=== PATIENT | female | born 1935 | race Caucasian/White ===

== ENCOUNTER 2019-02-09 19:11 | Emergency (ER) | payer MEDICARE ==
[2019-02-09 19:37] LABS: Urine Appearance Clear; Urine Bacteria 1+ (Absent); Urine Bilirubin Negative (Negative); Urine Blood 1+ (Negative); Urine Color Straw; Urine Glucose Negative (Negative); Urine Ketones Negative (Negative); Urine Nitrite Negative (Negative); Urine Protein Negative (Negative); Urine Red Blood Cell Trace(0-2/hpf) (Absent); Urine Specific Gravity 1.006 (1.010-1.030); Urine Urobilinogen Negative (Negative); Urine White Blood Cell Trace(0-5/hpf) (Absent)
--- OUTSIDE RECORDS SUMMARY | 2019-02-09 19:48 | XMS REPORT | Continuity of Care Document ---
:1935 External Reference #:[id number] Author Name Rico Christianson M.D. Address [address] [place] [address] Care Team Providers Name Role Phone Deya Gonzalez M.D. Primary Care Physician Unavailable Payers Date Identification Numbers Payment Provider Subscriber Policy Number: [id number] Medicare - NGS Nichelle Dill PayID: [id number] [address] [place] [address] Problems Active Problems Provider Date Nonexudative age-related macular Brandan Trotter M.D. Onset: 04/06/2015 degeneration Nuclear senile cataract Brandan Trotter M.D. 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 Onset: 07/03/2016 degeneration of right eye Combined form of senile cataract Brandan Trotter M.D. 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 Onset: 08/2016 of right eye Benign neoplasm of eyelid including canthus Rico Christianson M.D. Onset: 08/2016 Retinal edema Rico Christianson M.D. Onset: 08/29/2017 Family History Date Family Member(s) Observation Comments Father No Current Problems Mother No Current Problems First Brother Macular Degeneration Social History Type Date Description Comments Sex Unknown Marital Status Legal Status: Occupation Retired [employer]ed [employer] ETOH Use Denies alcohol use Tobacco Use Start: Unknown End: Unknown Patient is a former smoker Smoking Status Reviewed: 01/23/19 Patient is a former smoker Allergies, Adverse Reactions, Alerts Description No Known Drug Allergies Medications Active Medications SIG Qnty Indications Ordering Provider Date Preservision Areds 2 1 cap by mouth 60caps Brandan Trotter, 04/04/2015 twice a day M.D. Areds 2 Capsules [place] 3 1 by mouth every Unknown 1000mg Capsules day Calcium Acetate Unknown Osteo Bi-Flex Regular Unknown Strength Co Q 10 Unknown 10mg Capsules Aspirin Adult Low Unknown Strength 81mg Tablets DR Amlodipine Besylate Unknown 5mg Tablets Rosuvastatin Calcium daily Unknown 10mg Tablets Artificial Tears as needed Unknown 1-0.3% Solution Qunol Ultra Coq10 Unknown [id number]-Vumw Capsules History Medications Erythromycin apply to surgical 1Tube Rico Christianson, 07/11/2017 - 5mg/GM site three times a M.D. 11/13/2017 Ointment day Visine Tears as needed Brandan Trotter, 11/04/2015 - 0.2-0.2-1% M.D. 01/24/2017 Solution Ocuvite every day Brandan Trotter, 09/28/2014 - Tablets M.D. 04/05/2015 Multi Vitamin Daily Unknown - 11/02/2016 Tablets Calcium 500 1 by mouth every Unknown - day 04/05/2015 [id number]-mg-Unit Tablets Qunol Ultra Coq10 Unknown - 08/15/2018 [id number] Capsules Medications Administered in Office Medication SIG Qnty Indications Ordering Provider Date Avastin Bevacizumab Rico Christianson M.D. 04/22/2018 Injection Avastin Bevacizumab Rico Christianson M.D. 02/20/2018 Injection Avastin Bevacizumab Rico Christianson M.D. 12/19/2017 Injection Avastin Bevacizumab Rico Christianson M.D. 10/17/2017 Injection Avastin Bevacizumab Rico Christianson M.D. 08/29/2017 Injection Avastin Bevacizumab Rico Christianson M.D. 07/11/2017 Injection Avastin Bevacizumab Rico Christianson M.D. 05/30/2017 Injection Avastin Bevacizumab Rico Christianson M.D. 04/25/2017 Injection Avastin Bevacizumab Rico Christianson M.D. 03/14/2017 Injection Vital Signs Date Vital Result Comment 04/22/2018 2:42pm BP Systolic 138 mmHg BP Diastolic 64 mmHg Heart Rate 78 /min Respiratory Rate 14 /min 02/20/2018 1:46pm BP Systolic 122 mmHg BP Diastolic 60 mmHg Heart Rate 68 /min Respiratory Rate 16 /min 10/17/2017 1:03pm BP Systolic 127 mmHg BP Diastolic 86 mmHg Heart Rate 76 /min Respiratory Rate 16 /min 08/29/2017 2:10pm BP Systolic 153 mmHg BP Diastolic 87 mmHg Heart Rate 82 /min Respiratory Rate 16 /min 08/22/2017 1:59pm BP Systolic 151 mmHg BP Diastolic 83 mmHg Heart Rate 94 /min Respiratory Rate 16 /min 07/11/2017 1:52pm BP Systolic 146 mmHg BP Diastolic 83 mmHg Heart Rate 90 /min Respiratory Rate 15 /min 05/30/2017 1:22pm BP Systolic 144 mmHg BP Diastolic 85 mmHg Heart Rate 86 /min Respiratory Rate 16 /min 04/25/2017 1:49pm BP Systolic 140 mmHg BP Diastolic 62 mmHg Heart Rate 82 /min 03/14/2017 2:45pm BP Systolic 160 mmHg BP Diastolic 75 mmHg Heart Rate 82 /min Respiratory Rate 17 /min Procedures Date Code Description Status 10/15/2018 60848 Scanning Computerized Opthalmic Diagnostic Posterior Seg Completed Retina 10/15/2018 10117 Determination Of Refractive State Completed 10/15/2018 35844 Est Patient Comprehensive Exam Completed 08/15/2018 46866 Scanning Computerized Opthalmic Diagnostic Posterior Seg Completed Retina 08/15/2018 38194 Est Patient Intermediate Exam Completed 06/13/2018 96882 Scanning Computerized Opthalmic Diagnostic Posterior Seg Completed Retina 06/13/2018 60662 Est Patient Intermediate Exam Completed 04/22/2018 91063 Injection Intravitreal Of A Pharmacologic Agent Completed 02/20/2018 54994 Injection Intravitreal Of A Pharmacologic Agent Completed 12/19/2017 26320 Injection Intravitreal Of A Pharmacologic Agent Completed 11/15/2017 09348 Scanning Computerized Opthalmic Diagnostic Posterior Seg Completed Retina 11/15/2017 19827 Est Patient Comprehensive Exam Completed 10/17/2017 34093 Injection Intravitreal Of A Pharmacologic Agent Completed 08/29/2017 03616 Injection Intravitreal Of A Pharmacologic Agent Completed 08/22/2017 39528 Excision Lesion Eyelid Completed 07/11/2017 34741 Injection Intravitreal Of A Pharmacologic Agent Completed 06/14/2017 37675 Scanning Computerized Opthalmic Diagnostic Posterior Seg Completed Retina 05/30/2017 13489 Injection Intravitreal Of A Pharmacologic Agent Completed 04/25/2017 79128 Injection Intravitreal Of A Pharmacologic Agent Completed 03/14/2017 45456 Injection Intravitreal Of A Pharmacologic Agent Completed 02/27/2017 10276 Scanning Computerized Opthalmic Diagnostic Posterior Seg Completed Retina 01/25/2017 71622 Scanning Computerized Opthalmic Diagnostic Posterior Seg Completed Retina 01/02/2017 30045 Scanning Computerized Opthalmic Diagnostic Posterior Seg Completed Retina 01/02/2017 91790 Est Patient Comprehensive Exam Completed 07/03/2016 01950 Scanning Computerized Opthalmic Diagnostic Posterior Seg Completed Retina 07/03/2016 67021 Est Patient Comprehensive Exam Completed 11/05/2015 59142 Fundus Photography With Interpretation And Report Completed 11/05/2015 22306 Est Patient Intermediate Exam Completed 04/06/2015 86062 Est Patient Comprehensive Exam Completed 04/06/2015 49621 Determination Of Refractive State Completed 04/06/2015 34513 Scanning Computerized Opthalmic Diagnostic Posterior Seg Completed Retina 09/29/2014 29231 Fundus Photography With Interpretation And Report Completed 09/29/2014 80316 Est Patient Intermediate Exam Completed 03/31/2014 33649 Scanning Computerized Opthalmic Diagnostic Posterior Seg Completed Retina 03/31/2014 54482 Est Patient Comprehensive Exam Completed 03/24/2013 90139 Fundus Photography With Interpretation And Report Completed 03/24/2013 01163 Est Patient Comprehensive Exam Completed 11/23/2011 60456 Scanning Computerized Opthalmic Diagnostic Posterior Seg Completed Retina 11/23/2011 54396 Determination Of Refractive State Completed 11/23/2011 15435 Est Patient Comprehensive Exam Completed 11/14/2010 08524 Fundus Photography With Interpretation And Report Completed 11/14/2010 49958 Determination Of Refractive State Completed 11/14/2010 99693 Est Patient Comprehensive Exam Completed 11/16/2009 43186 Est Patient Comprehensive Exam Completed 11/16/2009 16375 Determination Of Refractive State Completed 11/16/2009 88541 Scanning Laser W/Interp And Report Completed 06/02/2008 70845 Scanning Laser W/Interp And Report Completed 06/02/2008 40478 Determination Of Refractive State Completed 06/02/2008 63097 Est Patient Comprehensive Exam Completed 05/07/2007 58190 Scanning Laser W/Interp And Report Completed 05/07/2007 01062 Determination Of Refractive State Completed 05/07/2007 65438 Est Patient Comprehensive Exam Completed 05/23/2005 16534 Determination Of Refractive State Completed 05/23/200584976 Est Patient Comprehensive Exam Completed 05/03/2004 92891 Fundus Photography With Interpretation And Report Completed 05/03/200420351 Determination Of Refractive State Completed 05/03/2004 56319 Est Patient Comprehensive Exam Completed Encounters Type Date Location Provider Dx Diagnosis Office Visit 04/25/2018 Rico Childs H35.3211 Exdtve age-rel 2:45p saira WARNER M.D. [facility] degn, right eye, with actv chrdl [place] Office Visit 06/14/2017 Rico Childs H35.3211 Exdtve age-rel 1:00p saira WARNER M.D. [facility] degn, right eye, with actv chrdl [place] H35.3124 Nexdtve age-rel mclr degn, l eye, adv atrpc with sbfvl invl Office Visit 02/27/2017 2:45p Brandan Christianson H35.3211 Exdtve age-hair Trotter MD, saira Rushing mclr degn, right eye, with actv chrdl [place] Office Visit 01/25/2017 2:00p Brandan Christianson H35.3211 Exdtve age-hair Trotter MD, saira Rushing mcl[facility] degn, right eye, with actv chrdl [place] H35.3124 Nexdtve age-rel mclr degn, l eye, adv atrpc with sbfvl invl H25.813 Combined forms of age-related cataract, bilateral D23.11 Oth benign neoplasm skin/ right eyelid, including canthus Plan of Treatment 01/23/2019 - Rico Christianson M.D.H35.3212 Exudative age-related macular degeneration, right eye, withComments:Smoking can increase the risk of developing or worsening any eye related disease, as well as affect your overall health. If you are a smoker, we strongly recommend that you quit.If you are not a smoker, we strongly recommend that you do not start. The wet Macular Degeneration in your right eye appears to be inactive at this time. Continue to monitor your vision, with each eye separately. Use yourAmsler Grid and continue taking the AREDS 2 Formula Vitamins. If you notice any changes in your vision before your next appointment, please call the office at to schedule an appointment.Follow up:3 Month Follow Up DFE, OCT MAC You can expect to have your eyes dilated at your next visit. If Dr. Christianson orders any additional testing, it may require extra time. We recommend that you bring sunglasses, as dilation drops often make you light sensitive until they wear off. We always recommend you bring someone to drive you home if you are uncomfortable driving with your eyes dilated. If you have any questions before your next visit, feel free to call our office at .H35.3124 Nonexudative age-related macular degeneration, left eye, advComments:You have Macular Degeneration. Check your Amsler Grid, with each eye separately, and take the AREDS II formula vitamins. If you notice any changes in your vision, please call the office and schedule anappointment to see any of the doctors here.H25.81 Combined forms of age-related cataract, bilateralComments:You have been diagnosed with cataracts. If you are happy with your vision as it is now, then we willsee you at your next scheduled appointment. If you feel like your vision is getting worse before your scheduled appointment, please call Georgette at [phone].
--- OUTSIDE RECORDS SUMMARY | 2019-02-09 19:48 | XMS REPORT | Continuity of Care Document ---
:1935 External Reference #:[id number] Author Name Natalie Meza, RADHA Address [address] [place] [address] Care Team Providers Name Role Phone Deya Gonzalez - Family Medicine Care Team Information Economic Research Analyst Vani De Dios - Physical Medicine Care Team Information Economic Research Analyst [phone] & Rehabilitation Tono Zabala MD - Cardiovascular Care Team Information Economic Research Analyst [phone] Disease Problems Active Problems Provider Date Atrophoderma Saundra Mead M.D. Onset: 04/10/2011 Anxiety state Saundra Mead M.D. Onset: 04/10/2011 Elevated blood-pressure reading without Saundra Mead M.D. Onset: diagnosis of hypertension Osteoporosis Saundra Mead M.D. Onset: 05/04/2011 Impaired fasting glycaemia Saundra Mead M.D. Onset: 05/24/2011 Arthropathy of joint of hand Saundra Mead M.D. Onset: 08/24/2011 Sensory function status: taste and smell Saundra Mead M.D. Onset: 06/2011 Pilonidal cyst with abscess Saundra Mead M.D. Onset: 08/24/2011 Vitamin D deficiency Deya Gonzalez M.D. Onset: 04/16/2012 Insomnia Deya Gonzalez M.D. Onset: 04/16/2012 Tobacco user Deya Gonzalez M.D. Onset: 04/16/2012 Skin sensation disturbance Deya Gonzalez M.D. Onset: 06/11/2012 Bursitis of knee Brandan Montes M.D. Onset: 08/08/2013 Leukocytosis Deya Gonzalez M.D. Onset: 03/26/2015 Intermittent claudication due to Deya Gonzalez M.D. 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 Onset: 2017 Mixed hyperlipidemia Deya Gonzalez M.D. Onset: 12/05/2017 Peripheral vascular disease Deya Gonzalez M.D. Onset: 12/05/2017 Essential hypertension Deya Gonzalez M.D. Onset: 02/27/2018 Social History Type Date Description Comments Sex Unknown Tobacco Use Start: Unknown Current Cigarette Smoker sometimes less. 6-8 1/2 Pack Daily cigarettes (12/09) 4-6 04/10. Smoking Status Reviewed: 02/03/19 Current Cigarette Smoker sometimes less. 6-8 1/2 Pack Daily cigarettes (12/09) 4-6 04/10. ETOH Use Rare Tobacco Use Start: Unknown Patient is a current 8 cigarettes a day. now smoker, smokes every day down to 6 a day. Allergies, Adverse Reactions, Alerts Description No Known Drug Allergies Medications Active Medications SIG Qnty Indications Ordering Provider Date Vitamin D take 1 capsule 8caps Deya Membreno 01/02/2019 (Ergocalciferol) by mouth once Kristan Gonzalez weekly for 8 00242Qmhc Capsules weeks. D3-50 Take One Capsule 3Caps Deya Membreno 10/22/2018 01106Zwha Capsules By Mouth Once A Kristan Gonzalez Month [employer]'s Made Deya Membreno 02/27/2018 Cholestoff Kristan Gonzalez Amlodipine Besylate take 1 tablet by 90tabs R03.0 Deya Membreno 10/09/2017 5mg mouth every day Kristan Gonzalez Tablets Osteo Biflex 1 bid Deya Membreno 03/29/2016 Kristan Gonzalez Preservision Areds 2 1 by mouth every Deya Membreno 03/29/2016 day Kristan Gonzalez Areds 2 Capsules Raw Calcium 1 daily Unknown Aspir-81 1 by mouth every Unknown 81mg Tablets DR day [place] 3 2 by mouth once Unknown 1000mg Capsules daily Crestor 1 by mouth every Unknown 10mg Tablets day Qunol Ultra Coq10 1 by mouth every Unknown day [id number] Capsules Immunizations CPT Code Status Date Vaccine Lot # [id number] Given 01/22/2015 Tdap Tetanus, W Pertussis [id number] 39819 Given 01/22/2015 Pneumococcal Conjugate Vacc-13 [id number] 89920 Given 12/29/2013 Zostivax 54115 Given 04/04/2010 Pneumococcal Immunization [id number] Vital Signs Date Vital Result Comment 02/03/2019 3:57pm BP Systolic 122 mmHg BP Diastolic 68 mmHg Heart Rate 86 /min Body Temperature 96.8 F Respiratory Rate 16 /min Height 56.75 inches 4'8.75" Weight 130.00 lb BMI (Body Mass Index) 28.4 kg/m2 12/04/2018 10:58am BP Systolic 112 mmHg BP Diastolic 62 mmHg Heart Rate 80 /min Body Temperature 98.3 F Respiratory Rate 16 /min Height 56.75 inches 4'8.75" Weight 132.00 lb BMI (Body Mass Index) 28.8 kg/m2 Results Test Date Facility Test Result H/L Range Note Laboratory test finding 12/25/2018 Eliot Gómez([facility]) CK 53 U/L 26-140 TSH 3.23 mIU/L 0.50-6.00 Vitamin D25 27 Low 30-100 Magnesium, Serum 1.9 mEq/L 1.2-2.1 CBC Electronic a 12/25/2018 Eliot Gómez([facility]) WBC 13.0 x10^3/UL High 4.0-10.0 1 RBC 5.23 x10^6/UL 3.93-6.00 HGB 14.4 g/dL 12.0-17.0 HCT 44 % 35-50 MCV 83.9 fL 80.0-95.0 MCH 27.5 pg 25.6-32.2 MCHC 32.8 g/dL 32.2-36.0 RDW-CV 15.0 % High 11.6-14.4 2 PLT 305 x10^3/UL 163-400 MPV 9.7 fL 9.4-12.4 [place]# 8.45 x10^3/UL High 1.56-6.13 3 Lymph# 3.19 x10^3/UL 1.18-3.74 [place]# 0.79 x10^3/UL 0.24-0.82 Eos # 0.3 x10^3/UL 0.0-0.5 Baso # 0.04 x10^3/UL 0.01-0.08 [place]% 64.7 % 34.0-70.0 Lymph % 25.7 % 20.0-52.0 [place]% 6.4 % 5.0-12.0 Eos% 2.7 % 0.7-7.0 Baso% 0.3 % 0.1-1.2 Comprehensive Metabolic 12/25/2018 Eliot G[facility]mez([facility]) Sodium 144 mEq/L 134-149 Prof Potassium 4.4 mEq/L 3.6-5.5 Chloride 107 mEq/L 94-112 Carbon Dioxide 28 mEq/L 21-32 Glucose 109 mg/dL High 70-105 4 BUN 19 mg/dL 6-26 Creatinine 0.6 mg/dL 0.6-1.4 BUN/Creat Ratio 31.7 CALC 8.0-36.0 Calcium 9.4 mg/dL 8.6-10.2 Total Protein 6.9 g/dL 6.4-8.3 Albumin 4.5 g/dL 3.8-5.5 Globulin 2.4 g/dL 2.0-4.8 A/G Ratio 1.9 CALC 0.6-2.3 Alk. Phosphatase 75 U/L 30-110 Alt (SGPT) 15 U/L 7-35 Ast (Sgot) 8 U/L 5-34 Total Bilirubin 0.4 mg/dL 0.2-1.3 GFR Non- >60 ml/min/1.73m^ >=60 GFR >60 ml/min/1.73m^ >=60 Lipid Profile 12/25/2018 Eliot G[facility]mez([facility]) Cholesterol 125 mg/dL 120- 200 Triglycerides 82 mg/dL 30-200 HDL Cholesterol 58 mg/dL 30-85 LDL (Calculated) 51 CALC 0-129 VLDL Cholesterol 16 mg/dL 0-50 HDL Risk Factor 2.2 CALC 0.0-4.4 1 RESULTS VERIFIED BY REPEAT ANALYSIS 2 RESULTS VERIFIED BY REPEAT ANALYSIS 3 RESULTS VERIFIED BY REPEAT ANALYSIS 4 RESULTS VERIFIED BY REPEAT ANALYSIS Procedures Date Code Description Status 02/03/2019 94228 Remove Impact Cerumen Irrigati Completed 06/05/2016 903751127 Bone Mineral Density Test Completed 04/27/2011 80102942 Mammogram Completed 04/14/2010 57491078 Mammogram Completed 04/06/2009 98200950 Mammogram Completed 02/04/2008 84709208 Mammogram Completed 02/01/2007 35532703 Mammogram Completed Medical Devices Description No Information Available Encounters Type Date Location Provider Dx Diagnosis Office Visit 12/04/2018 Main Office Seng Lorenzo Essential ( primary) 10:40a M.DTeetee hypertension E78.2 Mixed hyperlipidemia I73.9 Peripheral vascular disease, unspecified F43.22 Adjustment disorder with anxiety F17.210 Nicotine dependence, cigarettes, uncomplicated E55.9 Vitamin D deficiency, unspecified Office Visit 10/02/2018 11:20a Main Office Deya Ellsworth Essential ( primary) Kristan Gonzalez hypertension F17.210 Nicotine dependence, cigarettes, uncomplicated F43.22 Adjustment disorder with anxiety Assessments Date Code Description Provider 02/03/2019 H61.23 Impacted cerumen, bilateral Natalie Amparo Meza, [employer] SPECIALIST 12/25/2018 E78.2 Mixed hyperlipidemia Deya Gonzalez M.D. 12/25/2018 E55.9 Vitamin D deficiency, unspecified Deya Gonzalez M.D. 12/04/2018 I10 Essential (primary) hypertension Deya Gonzalez M.D. 12/04/2018 E78.2 Mixed hyperlipidemia Deya Gonzalez M.D. 12/04/2018 I73.9 Peripheral vascular disease, unspecified Deya Gonzalez M.D. 12/04/2018 F43.22 Adjustment disorder with anxiety Deya Gonzalez M.D. 12/04/2018 F17.210 Nicotine dependence, cigarettes, Deya Gonzalez M.D. uncomplicated 12/04/2018 E55.9 Vitamin D deficiency, unspecified Deya Gonzalez M.D. 10/02/2018 I10 Essential (primary) hypertension Deya Gonzalez M.D. 10/02/2018 F17.210 Nicotine dependence, cigarettes, Deya Gonzalez M.D. uncomplicated 10/02/2018 F43.22 Adjustment disorder with anxiety Deya Gonzalez M.D. Plan of Treatment Future Appointment(s):02/26/2019 10:30 am - Deya Gonzalez M.D. at Main Loxklw9502/26/2019 10:40 am - Deya Gonzalez M.D. at Main Qbjyam0902/03/2019 - Natalie Meza, NPH61.23 Impacted cerumen, bilateralComments:Warm water irrigation successful. Patient tolerated well. Discussed not to use Q tips, rather use a wash cloth around outside of ears. Avoid excessive use of headphones that enter ear canal, if using for long time use over ear type. Debrox as needed for excessive ear wax.AllComments:Medication Management Patient Understands medications he 's taking? Yes No Are there Barriers to Adherence? Yes No Has the patient been asked about herbal supplements and therapies, andOTC meds? Yes No Care Plan1. Patient has been queried about patient's goals/preferences and functional/ lifestyle goals at relevant visits. If relevant, describe: na2. Treatment goals as explained to the patient: above3. Are there barriers to meeting treatment goals? Yes No If Yes, please describe:4. Self-Management goals as described to the patient: Yes NoAs always, we strongly encourage a healthy diet and making physical activity a part of your every day life. If you have questions about how or where to start, please contact the office. Functional Status Description No Information Available Mental Status Description No Information Available Referrals Description No Information Available
--- NOTE | 2019-02-09 20:27 | ED ---
GI/ HPI - HPI Summary HPI Summary: The patient is an 83 y/o F presenting to [facility] with sudden onset urinary symptoms this morning with gradual worsening throughout the day. She reports that she began to experience a burning sensation and pressure with urination this morning with a development of right flank pain. She notes she has had increased urinary frequency as well with worsening flank pain. She additionally c/o decreased appetite but hasnt been nauseous or vomited. She has taken Tylenol [employer] to some relief of the pain. Currently, the dull pain is rated 4/10 in severity. Abdominal surgeries include cholecystectomy, appendectomy, and hysterectomy. No other pertinent PMHx. Light every day smoker, rare EtOH, no substance use. - History of Current Complaint Chief Complaint: EDUrogenitalProblems Time Seen by Provider: 02/09/19 20:20 Stated Complaint: POSSIBLE UTI PER PT Hx Obtained From: Patient Onset/Duration: Started Hours Ago - this morning, Still Present Timing: Lasting Hours Severity: Mild Current Severity: Moderate Pain Intensity: 4 Location of Pain: Flank - right Pain Characteristics: Dull Associated Signs and Symptoms: Positive: Change in Appetite - decreased, Flank Pain - right, UTI Symptoms - burning and pressure with urination, increased frequency. Negative: Nausea, Vomiting Aggravating Factor(s): Voiding Alleviating Factor(s): Medication - Tylenol to some relief - Allergy/Home Medications Allergies/Adverse Reactions: Allergies Allergy/AdvReac Type Severity Reaction Status Date / Time No Known Allergies Allergy Verified 02/09/19 19:17 PMH/Surg Hx/FS Hx/Imm Hx Endocrine/Hematology History: Denies: Hx Diabetes Cardiovascular History: Denies: Hx Hypertension, Hx Pacemaker/ICD Respiratory History: Denies: Hx Chronic Obstructive Pulmonary Disease (COPD) Musculoskeletal History: Reports: Hx Osteoporosis, Other Musculoskeletal History - HX OF SCIATIC NERVE PAIN Sensory History: Reports: Hx Contacts or Glasses - GLASSES Denies: Hx Hearing Aid Opthamlomology History: Reports: Hx Contacts or Glasses - GLASSES Neurological History: Reports: Other Neuro Impairments/Disorders - 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 1972 HYSTER WITH RIGHT OOPH Hx Anesthesia Reactions: No Infectious Disease History: No Infectious Disease History: Denies: Traveled Outside the [place] in Last 30 Days - Family History Known Family History: Negative: Diabetes - Social History Alcohol Use: Rare Hx Substance Use: No Substance Use Type: Reports: None Hx Tobacco Use: Yes Smoking Status (MU): Light Every Day Tobacco Smoker Review of Systems Positive: Other - decreased appetite. Negative: Vomiting, Nausea Positive: burning, frequency - increased, flank pain - right, other - pressure with urination All Other Systems Reviewed And Are Negative: Yes Physical Exam - Summary Physical Exam Summary: Appearance: Well-appearing, Well-nourished, lying in bed comfortably Skin: Warm, dry, no obvious rash Eyes: sclera anicteric, no conjunctival pallor ENT: mucous membranes moist, pharynx appears normal Neck: Supple, nontender Respiratory: Clear to auscultation, no signs of respiratory distress Cardiovascular: Normal S1, S2. No murmurs. Normal distal pulses in tibial and radial bilaterally. Abdomen: Soft, Mild right-sided abdominal tenderness with no peritoneal signs, normal active bowel sounds present Musculoskeletal: Normal, Strength/ROM Intact Neurological: A&Ox3, awake and alert, mentation is normal, speech is fluent and appropriate Psychiatric: affect is normal, does not appear anxious or depressed Triage Information Reviewed: Yes Vital Signs On Initial Exam: Initial Vitals Temp Pulse Resp BP Pulse Ox 98.8 F 88 12 184/81 98 02/09/19 19:14 02/09/19 19:14 02/09/19 19:14 02/09/19 19:14 02/09/19 19:14 Vital Signs Reviewed: Yes Diagnostics - Vital Signs Vital Signs Temp Pulse Resp BP Pulse Ox 02/09/19 19:14 98.8 F 88 12 184/81 98 - Laboratory Lab Results: Lab Results 02/09/19 Range/Units 19:27 Urine Color Straw Urine Appearance Clear Urine pH 6.0 (5-9) Ur Specific [place] 1.006 L (1.010-1.030) Urine Protein Negative (Negative) Urine Ketones Negative (Negative) Urine Blood 1+ A (Negative) Urine Nitrate Negative (Negative) Urine Bilirubin Negative (Negative) Urine Urobilinogen Negative (Negative) Ur Leukocyte Esterase Negative (Negative) Urine WBC (Auto) Trace(0-5/hpf) (Absent) Urine RBC (Auto) Trace(0-2/hpf) (Absent) Urine Bacteria 1+ A (Absent) Urine Glucose Negative (Negative) Urine Ascorbic Acid * A (Negative) Result Diagrams: 02/09/19 20:40 02/09/19 20:40 Lab Statement: Any lab studies that have been ordered have been reviewed, and results considered in the medical decision making process. Re-Evaluation - Re-Evaluation First Eval Re-Evaluation Time: 21:17 Comment: We discussed discharge plan. GIGU Course/Dx - Course Course Of Treatment: Patient is an 83 y/o F with cc of urinary symptoms including burning and pressure with urination and increased frequency and associated right flank pain starting this morning. Additionally c/o decreased appetite without nausea or vomiting. Upon physical exam, the patient exhibits mild right-sided abdominal tenderness without peritoneal signs. Blood work reveals elevated WBCs of 15.1, abs neuts of 10.7, sodium of 134, and BUN/ creatinine ratio of 26.6. UA is mostly negative for infection except for 1+ bacteria. Her pain actually seems to be improving and with a normal CRP and benign abdominal exam I am reluctant to pursue advanced imaging such as CT. I will treat for suspected UTI noting only mild abnormalities on UA but consistent symptoms. I explained to the patient that if this is simple UTI she should be feeling improved by Sunday and if not she should seen followup either here or with her PCP. - Diagnoses Provider Diagnoses: UTI (urinary tract infection) Discharge - Sign-Out/Discharge Documenting (check all that apply): Patient Departure - Patient will be discharged home. Patient Received Moderate/Deep Sedation with Procedure: No - Discharge Plan Condition: Good Disposition: HOME Prescriptions: Nitrofurantoin Monohyd/M-Cryst [Macrobid 100 mg Capsule] 100 mg PO BID #14 cap Patient Education Materials: Urinary Tract Infection in Older Adults (ED) Referrals: Deya Gonzalez MD [Primary Care Provider] - Additional Instructions: I would expect you to feel improved by Sunday if this is a simple UTI. If you are not better or getting worse we should see you back, or contact your PCP. - Billing Disposition and Condition Condition: GOOD Disposition: Home - Attestation Statements Document Initiated by Scribe: Yes Documenting Scribe: Emelian Guerrero Provider For Whom Kaylynn is Documenting (Include Credential): Dr. Sumeet Hyatt MD Scribe Attestation: I, Emelina Guerrero, scribed for Dr. Sumeet Hyatt MD on 02/10/19 at 0647. Scribe Documentation Reviewed: Yes Provider Attestation: The documentation as recorded by the scribe, Emelina Guerrero accurately reflects the service I personally performed and the decisions made by me, Dr. Sumeet Hyatt MD Status of Scriblux Document: Viewed
[2019-02-09 20:46] LABS: ABS Basophils 0.1 10^3/ul (0-0.2); ABS Eosinophils 0.2 10^3/ul (0-0.6); ABS Lymphocytes 3.2 10^3/ul (1.0-4.8); ABS Monocytes 0.9 10^3/ul (0-0.8); ABS Neutrophils 10.7 10^3/ul (1.5-7.7); Eosinophil % 1.2 %; Hematocrit 42 % (35-47); Hemoglobin 13.7 g/dL (12.0-16.0); Lymphocyte % 21.2 %; Mean Corpuscular HGB Conc 33 g/dL (31-36); Mean Corpuscular Hemoglobin 27 pg (27-31); Mean Corpuscular Volume 83 fL (80-97); Mean Platelet Volume 7.4 fL (7.4-10.4); Platelet Count 271 10^3/uL (150-450); Red Cell Distribution Width 16 % (10-15); White Blood Count 15.1 10^3/uL (3.5-10.8)
[2019-02-09 21:03] LABS: Albumin/Globulin Ratio 1.6 (1-3); BUN/Creatinine Ratio 26.6 (8-20); C Reactive Protein 1.16 mg/L (<8.01); Calcium 8.6 mg/dL (8.6-10.3); EGFR Non-African American 88.4 (>60); Globulin 2.5 g/dL (2-4); Potassium 3.8 mmol/L (3.5-5.0); Total Bilirubin 0.3 mg/dL (0.2-1.0); Total Protein 6.5 g/dL (6.4-8.9)
[2019-02-09] MEDS ORDERED: Nitrofurantoin Macrocrystals* 100 MG CAP PO ONE (21:43)
[2019-02-09 22:01] VITALS: BP 155/73
== END 2019-02-09 22:01 | disposition home or self-care (01) ==
LOC: ED 19:11
DX: N39.0 Urinary tract infection, site not specified (principal); F17.210 Nicotine dependence, cigarettes, uncomplicated
CPT/HCPCS: 36415; 80053; 81003; 81015; 83605; 85025; 86140; 87077; 87086; 87186; 99283; A9270-GY